=== PATIENT | male | born 1995 | race Caucasian/White ===

== ENCOUNTER 2025-02-02 13:26 | Emergency (ER) | payer OTHER ==
[~2025-02-02] VITALS: Ht 180.3 cm; Wt 112.7 kg
[2025-02-02] MEDS ORDERED: LISI10TA22 PO (13:32)
[2025-02-02 17:34] LABS: BASO # 0.1 10^3/uL (0.0-0.2); BASO % 0.7 % (0.0-1.0); EOS # 0.3 10^3/uL (0.0-0.5); EOS % 2.2 % (0.0-3.0); HEMATOCRIT 45.2 % (42.0-52.0); HEMOGLOBIN 15.8 g/dl (13.5-17.5); LYMPH # 3.6 10^3/uL (1.5-5.0); LYMPH % 29.5 % (24.0-44.0); MEAN CORPUSCULAR HEMOGLOBIN 30.1 pg (27.0-33.0); MEAN CORPUSCULAR VOLUME 86.1 fl (80.0-96.0); MONO # 0.8 10^3/uL (0.0-0.8); MONO % 6.1 % (2.0-8.0); NEUTROPHILS # 7.5 10^3/uL (1.5-8.5); NEUTROPHILS % 61.1 % (36.0-66.0); PLATELET COUNT, AUTOMATED 320 10^3/uL (150-450); RED BLOOD COUNT 5.25 10^6/uL (4.30-6.10); WHITE BLOOD COUNT 12.3 10^3/uL (4.0-10.0)
[2025-02-02] MEDS ORDERED: ISOVUE-370 76% 100ML VIAL As Ordered ONE (17:45)
[2025-02-02 17:57] LABS: MAGNESIUM LEVEL 1.9 MG/DL (1.8-2.4)
[2025-02-02 20:14] VITALS: BP 136/71; TEMP 98; O2SAT 97
== END 2025-02-02 20:15 | disposition home or self-care (01) ==
LOC: M ED 13:26
DX: M79.661 Pain in right lower leg (principal); M79.662 Pain in left lower leg; R20.2 Paresthesia of skin; I10 Essential (primary) hypertension
CPT/HCPCS: 36415; 75635; 80047; 82550; 83735; 85025; 99284; Q9967